=== PATIENT | male | born 1965 | race Caucasian/White ===

== ENCOUNTER 2019-03-20 19:16 | Inpatient (IN) | payer OTHER ==
[~2019-03-20] VITALS: Ht 170.2 cm; Wt 66.5 kg
--- NOTE | ~2019-03-20 | PROC ---
[address] [address] PROCEDURE REPORT Name: BRITTANI ALEJANDRO Room: [address] IN .R.#: [id number] Admission: 03/20/19 Attend Phys: Oskar Cervantes MD Discharge: 03/24/19 Date of : 69 Report #: [id number] THIS REPORT FOR: //name// For GI report, please see the Provation report in Perceptive 7 content. By: 1548Medical Records Staff MARIA GUADALUPE /JUANIS
[~2019-03-20 19:16] MED LIST: ATIVAN1 M1 PO; BUSPIRONE HCL10 MG PO; CATAPRES-TTS 31 EAC1 TRANSDERM; FOLIC ACID1 MG PO; LOPRESSOR25 PO; MULTI VITAMIN1 EACH PO; NICOTINE TRANSD21 M1 TRANSDERM; NOHOMEMEDICATIONS; OMEPRAZOLE40 MG PO; PEPCID20 MG PO; PRENATAL TABLE1 EAC2 PO; THERA M PLUS T1 EAC2 PO; TRINATE TABLET1 TAB PO; VITAMIN B-1100 M1 PO; XANAX 0.25 MG0.25 MG PO
[2019-03-20 19:17] VITALS: BP 123/62
[2019-03-20] MEDS ORDERED: TRAZODONE HCL100 MG PO (19:24)
[2019-03-20 19:53] LABS: HEMATOCRIT 51.5 % (42.0-52.0); HEMOGLOBIN 17.3 gm/dL (14.0-18.0); MCHC 33.7 g/dL (28.0-37.0); MCV 98.2 fL (80.0-100.0); MPV 8.8 fl. (7.2-11.1); NUCLEATED RBCS 0 /100WBC; PLATELET COUNT* 260 thou/uL (150-400); RBC 5.24 mil/uL (4.50-6.00); RDW-CV 14.3 % (10.5-14.5); WBC 22.4 thou/uL (4.0-11.0)
[2019-03-20 19:56] LABS: ANION GAP 29 mmol/L (7-16); BUN 16 mg/dL (7-18); CALCIUM 9.3 mg/dL (8.5-10.1); CHLORIDE 102 mmol/L (98-107); CO2 12 mmol/L (21-32); CREATININE 1.4 mg/dL (0.6-1.3); GLUCOSE 60 mg/dL (70-99); POTASSIUM 4.3 mmol/L (3.5-5.1); SODIUM 143 mmol/L (136-145)
[2019-03-20 20:06] LABS: ALBUMIN 4.9 g/dL (3.4-5.0); ALKALINE PHOSPHATASE 87 U/L (46-116); LIPASE 44 U/L (73-393); SGOT 53 U/L (15-37); SGPT 46 U/L (30-65); TOTAL BILIRUBIN 0.3 mg/dL (<0.1-1.0); TOTAL PROTEIN 7.9 g/dL (6.4-8.2); TROPONIN-I LEVEL <0.06 ng/mL (<0.06)
[2019-03-20 20:17] LABS: ABSOLUTE LYMPHOCYTES 0.7 thou/uL (0.8-5.3); ABSOLUTE MONOCYTES 1.8 thou/uL (0.0-1.2); ABSOLUTE NEUTROPHILS 19.9 thou/uL (1.6-8.1)
[2019-03-20 20:18] LABS: PLATELET ESTIMATE ADEQUATE
[2019-03-20 21:58] VITALS: BP 115/51
[2019-03-20 23:02] LABS: URINE BILIRUBIN NEGATIVE (Negative); URINE BLOOD TRACE (Negative); URINE CLARITY CLEAR; URINE COLOR YELLOW; URINE GLUCOSE-RANDOM NEGATIVE (Negative); URINE KETONES 2+ (Negative); URINE LEUKOCYTES-REFLEX NEGATIVE (Negative); URINE NITRITE-REFLEX NEGATIVE (Negative); URINE PROTEIN NEGATIVE (Negative); URINE UROBILINOGEN 0.2 E.U./dl (0.2-1.0)
[2019-03-20 23:35] VITALS: BP 116/65
[2019-03-21] VITALS: BP 159/63
[2019-03-21 04:00] VITALS: BP 123/72
[2019-03-21 07:45] VITALS: BP 141/74
--- NOTE | 2019-03-21 10:35 | EKG ---
[place] [address] ELECTROCARDIOGRAM REPORT Name: BRITTANI ALEJANDRO Room: [address] ADM IN [facility]#: [id number] Admission: 03/20/19 Attend Phys: Oskar Cervantes MD Discharge: Date of : 69 Report #: [id number] THIS REPORT FOR: //name// [facility] ED Test Date: 2019-03-20 Test Time: 19:42:13 Pat Name: BRITTANI ALEJANDRO Department: Room: [facility] Gender: M Emt/Dispatcher: : 1965 Requested By: Omar Saavedra Order Number: [id number] MD: Warner Rust Measurements Intervals [place] Rate: 122 P: 71 NC: 128 QRS: -91 QRSD: 139 T: 59 QT: 364 QTc: 519 Interpretive Statements Sinus tachycardia Probable left atrial enlargement RBBB and LAFB Compared to ECG 07/21/2016 17:20:26 No significant changes Electronically Signed On 03-21-2019 10:35:41 CDT by Warner Rust [email or web address] <ELECTRONICALLY SIGNED> By: Warner Rust MD, [facility] 03/21/19 1035 41 41 Warner Rust MD, FAC /EPI
[2019-03-21 12:00] VITALS: BP 116/70
[2019-03-21 16:00] VITALS: BP 118/72
[2019-03-21 18:58] LABS: HEMATOCRIT 36.7 % (42.0-52.0); MCH 33.8 pg (26.0-34.0); MCV 96.5 fL (80.0-100.0); MPV 9.1 fl. (7.2-11.1); RBC 3.8 mil/uL (4.50-6.00); RDW-CV 14.3 % (10.5-14.5); WBC 9.4 thou/uL (4.0-11.0)
[2019-03-21 19:03] LABS: HEMOGLOBIN 12.8 gm/dL (14.0-18.0)
[2019-03-21 20:11] VITALS: BP 114/64
[2019-03-22] VITALS: BP 118/77
[2019-03-22 04:00] VITALS: BP 129/69
[2019-03-22 04:59] LABS: HEMATOCRIT 36.4 % (42.0-52.0); HEMOGLOBIN 12.5 gm/dL (14.0-18.0); MCH 33.3 pg (26.0-34.0); MCHC 34.5 g/dL (28.0-37.0); MCV 96.7 fL (80.0-100.0); MPV 9.1 fl. (7.2-11.1); RBC 3.76 mil/uL (4.50-6.00); RDW-CV 14.5 % (10.5-14.5); WBC 7.3 thou/uL (4.0-11.0)
[2019-03-22 05:25] LABS: ALBUMIN 3.2 g/dL (3.4-5.0); CALCIUM 7.8 mg/dL (8.5-10.1); CREATININE 0.7 mg/dL (0.6-1.3); MAGNESIUM 1.9 mg/dL (1.8-2.4); POTASSIUM 3.5 mmol/L (3.5-5.1); TOTAL BILIRUBIN 0.6 mg/dL (<0.1-1.0); TOTAL PROTEIN 5.3 g/dL (6.4-8.2)
[2019-03-22 08:00] VITALS: BP 119/60
[2019-03-22 12:00] VITALS: BP 112/51
[2019-03-22 16:00] VITALS: BP 111/72
[2019-03-22 20:02] VITALS: BP 113/71
[2019-03-23] VITALS: BP 139/70
[2019-03-23 04:00] VITALS: BP 126/74
[2019-03-23 08:00] VITALS: BP 128/81
[2019-03-23 12:01] VITALS: BP 122/88
--- NOTE | 2019-03-23 12:20 | CON ---
[address] [address] CONSULTATION Name: BRITTANI ALEJANDRO Room: [address] IN [facility]#: [id number] Admission: 03/20/19 Attend Phys: Oskar Cervantes MD Discharge: Date of : 69 Report #: [id number] THIS REPORT FOR: //name// CC: Oskar Cervantes [facility] physician/PCP DATE OF SERVICE: 03/22/2019 HISTORY OF PRESENT ILLNESS: This is a pleasant 53-year-old male with past medical history significant for alcohol abuse, hypertension, hyperlipidemia, peptic ulcer disease with perforation and Parkinson's disease, who is presenting for evaluation of abdominal pain. The patient reports he felt nauseated prior to his hospitalization and to overcome it, he drank a large bottle of whiskey on Sunday night and Sunday morning. Following this, he began developing severe abdominal pain that was generalized. The pain is generally located in the center of abdomen, radiates to the back and has been associated with nausea and vomiting. The patient reports vomiting multiple rounds of coffee-ground emesis, but denies any ernestina hematemesis, hematochezia or melena. The patient reports about a 20 pound weight loss over the last few months as well as lack of appetite. PAST MEDICAL HISTORY: Significant for hypertension and hyperlipidemia. PAST SURGICAL HISTORY: The patient had partial gastrectomy for his peptic ulcer disease. SOCIAL HISTORY: The patient has smoked 2 packs of cigarettes every day since the age of 18 and usually binge drinks 2-3 bottles of hard liquor every week. There is no recreational drug use. FAMILY HISTORY: No known family history of colon cancer or Fink related neoplasia. REVIEW OF SYSTEMS: Negative except for what was mentioned in the HPI. PHYSICAL EXAMINATION: VITAL SIGNS: Temperature 36.9, pulse rate 67, blood pressure 119/60, respiratory rate 16. GENERAL: The patient is alert, awake, oriented x 3. HEENT: Pupils are equal, round, reactive to light and accommodation. Mucous membranes are moist. There is no congestion. LUNGS: Clear to auscultation bilaterally. CARDIOVASCULAR: Rate and rhythm regular, S1, S2 present. ABDOMEN: Soft. There is no distention, guarding or rigidity. EXTREMITIES: Warm, well perfused. There is no edema. SKIN: [place] [address] CONSULTATION Name: BRITTANI ALEJANDRO Room: [address]#: [id number] Admission: 03/20/19 Attend Phys: Oskar Cervantes MD Discharge: Date of : 69 Report #: [id number] LABORATORY DATA: Hemoglobin 12.5, hematocrit 36.4, platelet count 119, WBC count 7.3. Sodium 139, potassium 3.5, chloride 106, bicarbonate 25, BUN 10, creatinine 0.7, total bilirubin 0.6, AST 25, ALT 32, alkaline phosphatase 56. IMAGING: Abdomen and pelvis CT, this demonstrates thickened irregular gastric folds including luminal narrowing in the distal gastric body suggesting gastritis or gastric tumor, thickened descending and transverse colon suggestive of low-grade colitis, advanced atherosclerosis. ASSESSMENT: Pleasant 53-year-old gentleman with a history of alcohol abuse, presenting with nausea and coffee-ground emesis. CT shows evidence of possible gastric mass as well as some colitis. PLAN: We will proceed with EGD tomorrow to evaluate the gastric mucosa as well as his coffee-ground emesis. I do not suspect the patient has colitis and this is probably just an imaging artifact. I will discontinue antibiotics for the colitis. Further recommendations will be done based on the results of the scope. <ELECTRONICALLY SIGNED> By: Diego Diehl MD 03/23/19 1220 1125 1202Diego Diehl MD /nt
[2019-03-23 14:00] LABS: ABSOLUTE EOSINOPHILS 0.2 thou/uL (0.0-0.7); ABSOLUTE LYMPHOCYTES 1.2 thou/uL (0.8-5.3); ABSOLUTE MONOCYTES 0.8 thou/uL (0.0-1.2); ABSOLUTE NEUTROPHILS 4.4 thou/uL (1.6-8.1); BASOPHILS 0.7 %; EOSINOPHILS 2.6 %; HEMATOCRIT 38.8 % (42.0-52.0); HEMOGLOBIN 13.6 gm/dL (14.0-18.0); LYMPHOCYTES 18.3 %; MCH 33.3 pg (26.0-34.0); MCHC 35.2 g/dL (28.0-37.0); MCV 94.8 fL (80.0-100.0); MONOCYTES 11.6 %; MPV 9.4 fl. (7.2-11.1); NUCLEATED RBCS 0 /100WBC; PLATELET COUNT* 114 thou/uL (150-400); POLYS 66.8 %; RBC 4.09 mil/uL (4.50-6.00); RDW-CV 13.7 % (10.5-14.5); WBC 6.6 thou/uL (4.0-11.0)
[2019-03-23 14:43] LABS: % SATURATION 37 % (20-39); IRON 84 ug/dL (50-175)
[2019-03-23 16:00] VITALS: BP 128/71
[2019-03-23 20:20] VITALS: BP 123/64
[2019-03-24] VITALS: BP 134/71
[2019-03-24 04:00] VITALS: BP 115/76
[2019-03-24 07:30] VITALS: BP 127/74
[2019-03-24] MEDS ORDERED: TRAMADOL 50 MG50 MG PO (10:02)
[2019-03-24] MEDS ORDERED: PROTONIX40 M2 PO (10:02)
[2019-03-24 12:11] VITALS: BP 120/71
[2019-03-24 17:49] VITALS: BP 120/71
--- NOTE | 2019-03-26 14:07 | PATH ---
[address] [address] PATHOLOGY RPT PROCEDURE Name: BRITTANI ALEJANDRO Room: [address] IN .R.#: [id number] Admission: 03/20/19 Date of : 69 Discharge: 03/24/19 Report #: [id number] Path Case #: [id number] [facility] Accession Number: [id number] . 01 Material submitted: . PART A: esophagus - ESOPHAGEAL BX AT 38 CM. Modifiers: 38 CM PART B: esophagus - ESOPHAGEAL BX AT 36 CM. Modifiers: 36 CM PART C: esophagus - ESOPHAGEAL BX AT 34 CM. Modifiers: 34 CM PART D: esophagus - ESOPHAGEAL BX AT 32 CM. Modifiers: 32 CM . 01 Clinical history: . None provided . 02 Diagnosis: A. Esophageal biopsy at 38 cm: - Benign esophageal and Ny's types mucosa, indeterminate for dysplasia, favor negative, and with mild chronic inflammation typical of reflux, negative for high-grade dysplasia. See comment. . B. Esophageal biopsy at 36 cm: - Benign esophageal and Ny's types mucosa, indeterminate for dysplasia, favor negative, and with mild chronic inflammation typical of reflux, negative for high-grade dysplasia. See comment. . C. Esophageal biopsy at 34 cm: - Benign esophageal and Ny's types mucosa, indeterminate for dysplasia, favor positive, and with mild chronic inflammation typical of reflux, negative for high-grade dysplasia. See comment . D. Esophageal biopsy at 32 cm: - Benign esophageal and Ny's types mucosa, indeterminate for dysplasia, favor positive, and with mild chronic inflammation typical of reflux, negative for high-grade dysplasia. See comment . (JADE:ever/pit; 03/25/2019) S 03/26/2019 1229 Local . 02 Comment: Specimens A through D reviewed with Dr. Garrick Bansal, who agrees with the diagnoses. (JADE:ever/[facility]; 03/25/2019) . 02 Electronically signed: . Luigi Muller MD, Pathologist NPI- [id number] . 01 Gross description: . A. The specimen is received in formalin, labeled "Brittani Alejandro, [place] [address] PATHOLOGY RPT PROCEDURE Name: BRITTANI ALEJANDRO Room: [address] IN M.R.#: [id number] Admission: 03/20/19 Date of : 69 Discharge: 03/24/19 Report #: [id number] Path Case #: [id number] esophagus at 38 cm" and consists of multiple fragments of lawrence-truong tissue measuring 1.1 x 0.3 x 0.2 cm in aggregate which are entirely submitted in A1. . B. The specimen is received in formalin, labeled "Brittani Alejandro, esophageal BX at 36 cm" and consists of 4 fragments of truong tissue measuring between 0.3 x 0.1 cm and 0.4 x 0.2 cm which are entirely submitted in B1. . C. The specimen is received in formalin, labeled "Brittani Alejandro, esophageal BX at 34 cm" and consists of 4 fragments of pink-truong tissue measuring between 0.2 x 0.2 cm and 0.8 x 0.2 cm which are entirely submitted in C1. . D. The specimen is received in formalin, labeled "Brittani Alejandro, esophageal BX at 32 cm" and consists of 2 fragments of truong tissue measuring 0.5 x 0.3 cm and 0.4 x 0.3 cm which are entirely submitted in D1. (SDY; 03/24/2019) SYU/SYU 03/24/2019 1200 Local . 02 Pathologist provided ICD-10: K22.70, K20.9 . 02 CPT . 733708, 359344, 403181, 978779 Specimen Comment: A courtesy copy of this report has been sent to Specimen Comment: [phone], . Specimen Comment: Report sent to / DR MATHUR Performed at: [address], [place], [place] [id number] MD Paul Panda MD Phone: [phone] Performed at: 02 [facility] [address], [place], [place] [id number] MD Luigi Muller MD Phone: [phone]
== END 2019-03-24 19:20 | disposition home or self-care (01) | DRG 371 ==
LOC: M.ERS 19:16 → M.2W 21:57 → M.TBA-ER 21:57 → M.2W 23:35
PROVIDERS: Family Medicine; Internal Medicine; Internal Medicine Gastroenterology; ADMIT Internal Medicine
PROC: 0DB58ZX Excision of Esophagus, Via Natural or Artificial Opening Endoscopic, Diagnostic (ICD-10-PCS; principal; 2019-03-22)
DX: A04.9 Bacterial intestinal infection, unspecified (principal); K29.21 Alcoholic gastritis with bleeding; K25.4 Chronic or unspecified gastric ulcer with hemorrhage; I10 Essential (primary) hypertension; E78.5 Hyperlipidemia, unspecified; F32.9 Major depressive disorder, single episode, unspecified; E78.00 Pure hypercholesterolemia, unspecified; E16.2 Hypoglycemia, unspecified; K59.00 Constipation, unspecified; K22.70 Barrett's esophagus without dysplasia; K76.0 Fatty (change of) liver, not elsewhere classified; F10.20 Alcohol dependence, uncomplicated; G20 Parkinson's disease; F17.210 Nicotine dependence, cigarettes, uncomplicated; Z90.3 Acquired absence of stomach [part of]; Z87.11 Personal history of peptic ulcer disease; Z87.81 Personal history of (healed) traumatic fracture; Z79.899 Other long term (current) drug therapy; Z82.49 Family history of ischemic heart disease and other diseases of the circulatory system

== ENCOUNTER 2019-07-06 05:18 | Emergency (ER) | payer OTHER ==
[~2019-07-06] VITALS: Ht 170.2 cm; Wt 68.0 kg
[~2019-07-06 05:18] MED LIST changes: +PROTONIX40 M2 PO; +TRAMADOL 50 MG50 MG PO; +TRAZODONE HCL100 MG PO
[2019-07-06 06:33] LABS: URINE BILIRUBIN NEGATIVE (Negative); URINE BLOOD TRACE (Negative); URINE CLARITY CLEAR; URINE COLOR YELLOW; URINE GLUCOSE-RANDOM NEGATIVE (Negative); URINE KETONES NEGATIVE (Negative); URINE LEUKOCYTES-REFLEX NEGATIVE (Negative); URINE NITRITE-REFLEX NEGATIVE (Negative); URINE PROTEIN NEGATIVE (Negative); URINE SPECIFIC GRAVITY 1.025 (1.005-1.030)
[2019-07-06 06:55] LABS: ABSOLUTE EOSINOPHILS 0.1 thou/uL (0.0-0.7); ABSOLUTE LYMPHOCYTES 0.6 thou/uL (0.8-5.3); ABSOLUTE MONOCYTES 0.5 thou/uL (0.0-1.2); BASOPHILS 0.9 %; EOSINOPHILS 1.5 %; HEMATOCRIT 40.8 % (42.0-52.0); HEMOGLOBIN 14.2 gm/dL (14.0-18.0); LYMPHOCYTES 14.1 %; MCH 33.1 pg (26.0-34.0); MCHC 34.8 g/dL (28.0-37.0); MCV 94.9 fL (80.0-100.0); MONOCYTES 12.7 %; MPV 8.9 fl. (7.2-11.1); NUCLEATED RBCS 0 /100WBC; PLATELET COUNT* 133 thou/uL (150-400); POLYS 70.8 %; RBC 4.29 mil/uL (4.50-6.00); RDW-CV 13.6 % (10.5-14.5); WBC 4.3 thou/uL (4.0-11.0)
[2019-07-06 07:11] LABS: CALCIUM 8.5 mg/dL (8.5-10.1); CREATININE 0.8 mg/dL (0.6-1.3); POTASSIUM 3.9 mmol/L (3.5-5.1)
[2019-07-06 07:16] LABS: ALBUMIN 3.9 g/dL (3.4-5.0); TOTAL BILIRUBIN 0.2 mg/dL (<0.1-1.0); TOTAL PROTEIN 6.5 g/dL (6.4-8.2)
[2019-07-06 08:10] VITALS: BP 100/60
== END 2019-07-06 08:10 | disposition home or self-care (01) ==
LOC: M.ERS 05:18
PROVIDERS: Personal Emergency Response Attendant
DX: M54.5 Low back pain (principal); I10 Essential (primary) hypertension; F17.210 Nicotine dependence, cigarettes, uncomplicated

== ENCOUNTER 2021-07-01 11:58 | Emergency (ER) | payer OTHER ==
[~2021-07-01] VITALS: Ht 170.2 cm; Wt 72.6 kg
[2021-07-01 16:13] LABS: ABSOLUTE LYMPHOCYTES 0.7 thou/uL (0.8-5.3); ABSOLUTE MONOCYTES 0.9 thou/uL (0.0-1.2); ABSOLUTE NEUTROPHILS 3.4 thou/uL (1.6-8.1); BASOPHILS 0.6 %; EOSINOPHILS 0.2 %; HEMATOCRIT 42.2 % (42.0-52.0); HEMOGLOBIN 14.6 gm/dL (14.0-18.0); LYMPHOCYTES 13.9 %; MCH 32.6 pg (26.0-34.0); MCHC 34.6 g/dL (28.0-37.0); MCV 94.3 fL (80.0-100.0); MONOCYTES 18.4 %; MPV 8.1 fl. (7.2-11.1); NUCLEATED RBCS 0 /100WBC; PLATELET COUNT* 149 thou/uL (150-400); POLYS 66.9 %; RBC 4.48 mil/uL (4.50-6.00); RDW-CV 14.2 % (10.5-14.5); WBC 5.1 thou/uL (4.0-11.0)
[2021-07-01 16:21] LABS: CALCIUM 8.5 mg/dL (8.5-10.1); CREATININE 0.8 mg/dL (0.6-1.3); POTASSIUM 3.8 mmol/L (3.5-5.1)
[2021-07-01 16:26] LABS: ALBUMIN 4.1 g/dL (3.4-5.0); TOTAL BILIRUBIN 0.2 mg/dL (<0.1-1.0); TOTAL PROTEIN 6.9 g/dL (6.4-8.2)
[2021-07-01] MEDS ORDERED: ZOFRAN ODT4 MG DISSOLVE (16:49)
[2021-07-01 16:56] VITALS: BP 141/70
--- NOTE | 2021-07-01 17:58 | EKG ---
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: : 1965 Requested By: Cristo Foster Order Number: [id number] MD: Singh Jackson Measurements Intervals [place] Rate: 86 P: 38 PA: 130 QRS: -35 QRSD: 144 T: 38 QT: 375 QTc: 449 Interpretive Statements Sinus rhythm Right bundle branch block Compared to ECG 03/20/2019 19:42:13 Sinus tachycardia no longer present Left anterior fascicular block no longer present Electronically Signed On 07-01-2021 17:58:14 FAMILY LIFE EDUCATOR by Singh Jackson [email or web address] <ELECTRONICALLY SIGNED> By: Singh Jackson MD, FACC 07/01/21 1758 1552 1552 Singh Jackson MD, FAC /EPI
== END 2021-07-01 16:56 | disposition home or self-care (01) ==
LOC: M.ERS 11:58
PROVIDERS: Emergency Medicine Emergency Medical Services
DX: B34.9 Viral infection, unspecified (principal); R11.2 Nausea with vomiting, unspecified; R42 Dizziness and giddiness; I10 Essential (primary) hypertension; G20 Parkinson's disease; F17.210 Nicotine dependence, cigarettes, uncomplicated; Z79.899 Other long term (current) drug therapy